=== PATIENT | female | born 1955 | race American Indian/Alaskan Native ===

== ENCOUNTER 2018-04-02 16:02 | Emergency (ER) | payer OTHER ==
[2018-04-02 16:26] VITALS: RESP 18
[2018-04-02] MEDS ORDERED: Sodium Chloride 0.9% 500 ML IV ONE (18:25)
--- NOTE | 2018-04-02 18:25 | C.PDOC ---
History Of Present Illness 62 years old female with PMHx of thyroid disease, vertigo, diabetes, and sarcoidosis presents to ED for complaints of abdominal pain associated with nausea, vomiting, headache, subjective fever, chills, diarrhea, body-aches, sore throat, and cough. Patient describes pain worsens with food. She reports taking ibuprofen yesterday for relief. Patient also states she flew in from [place] yesterday. Denies runny nose, smoking, or other complaints. Chief Complaint (Nursing): Abdominal Pain History Per: Patient History/Exam Limitations: no limitations Onset/Duration Of Symptoms: Hrs Current Symptoms Are (Timing): Still Present Location Of Pain/Discomfort: Diffuse Radiation Of Pain To:: None Quality Of Discomfort: "Pain" Associated Symptoms: Fever (Subjective), Chills, Nausea, Vomiting, Diarrhea Exacerbating Factors: Food Alleviating Factors: None Last Bowel Movement: Today Recent travel outside of the [place]: No Abnormal Vaginal Bleeding: No Past Medical History Reviewed: Historical Data, Nursing Documentation, Vital Signs Vital Signs: Last Vital Signs Temp 98.8 F 04/02/18 16:22 Pulse 77 04/02/18 16:22 Resp 18 04/02/18 16:22 BP 140/83 04/02/18 16:22 Pulse Ox 96 04/02/18 16:22 - Medical History PMH: Graves' Disease, HTN, Hypothyroidism Surgical History: (2) Family History: States: No Known Family Hx - Social History Hx Alcohol Use: No Hx Substance Use: No - Immunization History Hx Tetanus Toxoid Vaccination: No Hx Influenza Vaccination: Yes Hx Pneumococcal Vaccination: Yes Review Of Systems Constitutional: Positive for: Fever (Subjective ), Chills, Malaise ENT: Positive for: Throat Pain Respiratory: Positive for: Cough Gastrointestinal: Positive for: Nausea, Vomiting, Abdominal Pain, Diarrhea. Negative for: Constipation Genitourinary: Negative for: Dysuria Skin: Negative for: Rash Neurological: Positive for: Headache. Negative for: Weakness, Numbness Physical Exam - Physical Exam Appears: Non-toxic, No Acute Distress, Other (Ill. ) Skin: Normal Color, Warm, Dry, No Rash Head: Atraumatic, Normacephalic Eye(s): bilateral: Normal Inspection, PERRL, EOMI Oral Mucosa: Moist Throat: Normal, No Erythema, No Exudate, No Drooling, No Mass Neck: Normal ROM, Supple Chest: Symmetrical, No Tenderness Cardiovascular: Rhythm Regular, No Murmur Respiratory: Normal Breath Sounds, No Rales, No Rhonchi, No Wheezing Gastrointestinal/Abdominal: Soft, Tenderness (Mid diffused ), No Distention, No Guarding, No Rebound, Other (Obese. Vertical scar from . ) Back: Normal Inspection, No CVA Tenderness Extremity: Normal ROM Extremity: Bilateral: Atraumatic, Normal Color And Temperature, Normal ROM Pulses: Left Radial: Normal, Right Radial: Normal Neurological/Psych: Oriented x3, Normal Speech ED Course And Treatment O2 Sat by Pulse Oximetry: 96 (RA) Pulse Ox Interpretation: Normal Medical Decision Making Medical Decision Making: Plan: * IV fluids * Motrin * Tylenol * EKG * Blood work * CXR * Flu AB Swab * Urinalysis Disposition Counseled Patient/Family Regarding: Studies Performed - Disposition Disposition Time: 18:44 Condition: STABLE Forms: [facility] ([facility]), General Discharge Instructions - POA Present On Arrival: None - Clinical Impression Clinical Impression: Viral syndrome - Scribe Statement The provider has reviewed the documentation as recorded by the Scribe Adriana Ugalde All medical record entries made by the Scribe were at my direction and personally dictated by me. I have reviewed the chart and agree that the record accurately reflects my personal performance of the history, physical exam, medical decision making, and the department course for this patient. I have also personally directed, reviewed, and agree with the discharge instructions and disposition. Physician Patient Turnover Patient Signed Over To: Olivia Hargrove Handoff Comments: 62 y/o with multiple symptoms, possible viral. Pending labs, hydration , Motrin and re-evaluate.
[2018-04-02 20:35] LABS: BASO # 0.1 K/uL (0.0-0.2); BASO % 0.9 % (0.0-2.0); EOS # 0.3 K/uL (0.0-0.7); EOS % 4.7 % (0.0-4.0); HEMOGLOBIN 12.5 g/dL (11.0-16.0); LYMPH # 3.4 K/uL (1.0-4.3); LYMPH % 47.6 % (20.0-40.0); MEAN CELL VOLUME 92.1 fL (81.0-99.0); MEAN CORPUSCULAR HEMOGLOBIN 29.8 pg (27.0-31.0); MEAN CORPUSCULAR HGB CONC 32.4 g/dL (33.0-37.0); MEAN PLATELET VOLUME 7.3 fL (7.2-11.7); MONO # 0.7 K/uL (0.0-0.8); MONO % 9.1 % (0.0-10.0); NEUT # 2.7 K/uL (1.8-7.0); NEUT % 37.7 % (50.0-75.0); NRBC % 0.1 % (0.0-2.0); RBC 4.21 Mil/uL (3.80-5.20); WHITE BLOOD COUNT 7.2 K/uL (4.8-10.8)
[2018-04-02 20:46] LABS: BLOOD UREA NITROGEN 15 mg/dL (7-17); GFR NON-AFRICAN AMERICAN > 60
[2018-04-02 20:48] LABS: SQUAMOUS EPITHIAL 5 /hpf (0-5); URINE BACTERIA OCC (<OCC); URINE BILIRUBIN NEGATIVE (NEGATIVE); URINE BLOOD NEGATIVE (NEGATIVE); URINE CLARITY Clear (Clear); URINE COLOR Yellow (YELLOW); URINE GLUCOSE (UA) NORMAL (Normal); URINE LEUKOCYTE ESTERASE NEG Leu/uL (Negative); URINE PROTEIN NEGATIVE (NEGATIVE)
[2018-04-02 21:38] VITALS: BP 136/79; PULSE 78; TEMP 98; O2SAT 98
--- NOTE | 2018-04-03 15:41 | RAD ---
Date of service: 04/02/2018 HISTORY: SOB COMPARISON: Is FINDINGS: LUNGS: No active pulmonary disease. PLEURA: No significant pleural effusion identified, no pneumothorax apparent. CARDIOVASCULAR: Suspect minimal aortic atherosclerotic calcification present. Normal cardiac size. No pulmonary vascular congestion. OSSEOUS STRUCTURES: No significant abnormalities. VISUALIZED UPPER ABDOMEN: Normal. OTHER FINDINGS: None. IMPRESSION: No active disease.
--- NOTE | 2018-04-04 20:56 | CARD ---
APPROVED REPORT Date of service: 04/02/2018 EKG Measurement Heart [id number] <Conclusion> Normal sinus rhythm Check lead plavement
== END 2018-04-02 22:22 | disposition home or self-care (01) ==
LOC: C.ER 16:02
DX: N39.0 Urinary tract infection, site not specified (principal); R10.9 Unspecified abdominal pain; B34.9 Viral infection, unspecified